=== PATIENT | female | born 1945 | race Caucasian/White ===

== ENCOUNTER 2018-05-19 13:22 | Day surgery (SDC) | payer MEDICARE, OTHER, SELFPAY ==
--- NOTE | 2018-05-19 | PATH_ITS ---
[facility] Accession Number: [id number] . 01 Material submitted: . PART A: CECAL POLYP PART B: PROXIMAL TRANSVERSE COLON PART C: POLYP AT 15CM . 02 Diagnosis: A. Cecal Polyp: Tubular adenoma. . B. Proximal Transverse Colon: Tubular adenoma. . C. Colon Polyp at 15 cm: Inflammatory polyp. MRV/05/21/2018 . 02 Electronically signed: . Diogenes Russo MD, PhD, Pathologist NPI- [id number] . 01 Gross description: . Part A: CECAL POLYP: Received in formalin are multiple fragment(s) of thapa, soft tissue measuring 1.6 x 0.8 x 0.3 cm in aggregate submitted entirely in 1 cassette(s) Part B: PROXIMAL TRANSVERSE COLON: Received in formalin is 1 fragment(s) of thapa, soft tissue measuring 0.7 x 0.5 x 0.3 cm submitted entirely in 1 cassette(s) Part C: POLYP AT 15CM: Received in formalin is 1 fragment(s) of thapa, soft tissue measuring 0.4 x 0.3 x 0.3 cm submitted entirely in 1 cassette(s) /CKI /CKI . 02 Pathologist provided ICD-10: D12.0, D12.3, K51.40 . 02 CPT . 200686, 711563, [id number] Performed at: 01 [facility] [address] [place] [address], [place], [place] [id number] MD Eusebio Perez MD Phone: [phone] Performed at: 02 [facility] [address] [place], [place] [id number] MD Rachel Martinez MD Phone: [phone]
[2018-05-19 14:56] VITALS: BP 137/91; PULSE 72; RESP 15; TEMP 36.2; O2SAT 98; BMI 21.0
[2018-05-19 16:06] VITALS: BMI 21.0
[2018-05-19] MEDS: SODIUM CHLORIDE 0.9% 1,000 ML 200 ML IV (16:12)
[2018-05-19] MEDS: MIDAZOLAM 5 MG/5 ML VIAL IV (16:55)
[2018-05-19] MEDS: fentaNYL 250 MCG/5 ML INJ IV (16:55)
--- NOTE | 2018-05-19 17:20 | PM.HP.1 ---
History of Present Illness Date Patient Seen: 05/19/18 Time Patient Seen: 17:22 Chief complaint: colonoscopy [id number] Narrative: Very pleasant 72-year-old lady here for screening colonoscopy. She reports her last colonoscopy was 11 years ago. She does not recall ever having polyps in the past. Patient History Family & Social History Family History: Reviewed 05/19/18 by Pilar Fatima MD Social History: household members spouse Meds Home Medications Medication Instructions Recorded Confirmed Type No Known Home Medications 05/19/18 05/19/18 History Allergies Allergy/AdvReac Type Severity Reaction Status Date / Time No Known Drug Allergies Allergy Verified 05/19/18 14:55 Review of Systems Review of Systems All systems reviewed & are unremarkable except as noted in HPI and below Exam Vital Signs (past 8 hours): - 05/19/18 14:56 Temperature 97.2 F L Pulse Rate 72 Respiratory Rate 15 Blood Pressure 137/91 H Pulse Oximetry 98 Oxygen Delivery Method Room Air Narrative Exam Narrative: Pleasant thin lady in no obvious distress HEENT: Normocephalic and atraumatic, pupils equal round reactive to light accommodation with anicteric sclera Lungs: Clear bilaterally Heart: Regular rate and rhythm Abdomen: Soft, nontender, active bowel sounds Extremities: Warm well perfused Assessment & Plan Plan: Assessment/Plan Narrative: 72-year-old lady here for screening colonoscopy. We discussed the risks and benefits of the procedure the patient expressed a desire to complete it today.
[2018-05-19 17:22] VITALS: BP 123/78; PULSE 72; RESP 12; TEMP 36.3; O2SAT 97
[2018-05-19 17:27] VITALS: BP 125/77; PULSE 72; RESP 14; O2SAT 98
--- NOTE | 2018-05-19 17:28 | PM.OP.1 ---
Operative Date/Time/Diagnoses Date of procedure: 05/19/18 Time of procedure: 17:28 Pre-op diagnosis: Screening Post-op diagnosis: same Procedure & Clinicians Procedure: Colonoscopy to the cecum with snare and cautery polypectomy x3 Same procedure as scheduled: Yes Indications: Last colonoscopy 11 years ago Surgeon: Pilar Fatima Anesthesia Type: Sedation (Fentanyl and Versed) Operative Notes Findings: 1. Adequate prep 2. 1 cm polyp in the floor of the cecum removed with snare and cautery and retained for pathology 3. 5 mm polyp in the proximal transverse colon removed with snare and cautery and retained for pathology 4. 5 mm polyp at 15 cm from the anal verge removed with snare cautery 5. Tortuous and atonic: 6. Minimal diverticulosis 7. Grade 1-2 internal hemorrhoids Specimen(s): other (Three polyps removed with snare cautery) Procedure in detail: After obtaining informed consent, the patient was brought to the GI suite and placed in the left lateral decubitus position on the examination table. After placement of appropriate monitors, the patient was given incremental doses of Versed and Fentanyl until an appropriate level of sedation was achieved. A time out was held per SCOAP protocol. A digital rectal examination was performed and did not reveal any masses or obstructing lesions. The colonoscope was gently passed into the patient's anus and the entire colon navigated to the level of the cecum with moderate difficulty due to colon atony and tortuosity. External pressure and multiple changes of position were required to complete the procedure. Once in the cecum, the scope was withdrawn being sure to go before and beyond all mucosal folds and prominences and get an excellent examination. The findings are noted above. At the level of the rectal vault, the scope was retroflexed and the internal anal canal was examined. The scope was straightened and air aspirated from the colon. The instrument was removed from the patient's body and the procedure was concluded. The patient was allowed to awaken from sedation without difficulty and taken to the post-anesthesia care unit in good condition. Total sedation time was 29 min Total withdrawal time was 16 min Complications: none Condition: stable Disposition: PACU Plan for aftercare: 1. Discharge to home 2. Plan for next colonoscopy in 2-3 years depending upon the final pathology
[2018-05-19 17:32] VITALS: BP 125/75; PULSE 69; RESP 12; O2SAT 69
--- NOTE | 2018-05-19 17:34 | SUR.PHASEI ---
Pt awake, sitting up. tolerating po liquids without any nausea or vomiting. No complaints of pain. \report given to Rainer puente rn
[2018-05-19 17:40] VITALS: BP 134/79; PULSE 67; RESP 10; TEMP 36.3; O2SAT 100
[2018-05-19 17:55] VITALS: BP 134/79; PULSE 72; RESP 24; TEMP 36.3; O2SAT 98
== END 2018-05-19 17:55 | disposition home or self-care (01) ==
PROVIDERS: PCP Nurse Practitioner Family; Visit Provider Surgery
PROC: 0DJD8ZZ Inspection of Lower Intestinal Tract, Via Natural or Artificial Opening Endoscopic (ICD-10-PCS; CPT 45378; principal; 2018-05-19 16:00)
DX: Z12.11 Encounter for screening for malignant neoplasm of colon (principal); K57.30 Diverticulosis of large intestine without perforation or abscess without bleeding; K64.1 Second degree hemorrhoids; K51.40 Inflammatory polyps of colon without complications; D12.3 Benign neoplasm of transverse colon; D12.0 Benign neoplasm of cecum
CPT/HCPCS: 45385; 88305; 99152; 99153; J2250; J3010

== ENCOUNTER → 2018-10-01 11:42 | Outpatient (CLI) | payer MEDICARE, OTHER, SELFPAY ==
--- NOTE | 2018-10-01 | DI.MG.S_ITS ---
BILATERAL DIGITAL SCREENING MAMMOGRAM 3D/2D WITH CAD: 10/01/2018 CLINICAL: Routine screening. Family history of breast cancer. Comparison is made to exams dated: 08/11/2017 mammogram, 06/28/2016 mammogram, and 06/14/2015 mammogram - [facility]. The tissue of both breasts is heterogeneously dense. This may lower the sensitivity of mammography. Current study was also evaluated with a Computer Aided Detection (CAD) system. No significant masses, calcifications, or other findings are seen in either breast. There has been no significant interval change. IMPRESSION: NEGATIVE There is no mammographic evidence of malignancy. A 1 year screening mammogram is recommended. This exam was interpreted at Station ID: [id number]. NOTE: For mammograms, a report in lay terms will be sent to the patient. Approximately 15% of breast malignancies will not be visualized mammographically. In the management of a palpable breast mass, a negative mammogram must not discourage biopsy of a clinically suspicious lesion. Electronically Signed By: Milton hatfield/geo:10/01/2018 16:59:52 letter sent: Normal Exam ACR BI-RADS Category 1: Negative 3341F
== END ==
PROVIDERS: PCP Nurse Practitioner Family; Visit Provider Nurse Practitioner Family
DX: Z12.31 Encounter for screening mammogram for malignant neoplasm of breast (principal); Z80.3 Family history of malignant neoplasm of breast
CPT/HCPCS: 77063; 77067

== ENCOUNTER → 2018-11-09 14:30 | Outpatient (CLI) | payer MEDICARE, OTHER, SELFPAY | PROVIDERS: PCP Nurse Practitioner Family; Visit Provider Nurse Practitioner Family | DX: M85.852 Other specified disorders of bone density and structure, left thigh (principal); Z78.0 Asymptomatic menopausal state | CPT/HCPCS: 77080 ==

== ENCOUNTER → 2019-10-22 14:32 | Outpatient (CLI) | payer MEDICARE, OTHER, SELFPAY ==
--- NOTE | 2019-10-22 14:35 | DI.MG.S_ITS ---
BILATERAL DIGITAL SCREENING MAMMOGRAM 3D/2D WITH CAD: 10/22/2019 CLINICAL: Routine screening. Family history of breast cancer. Comparison is made to exams dated: 10/01/2018 mammogram, 08/11/2017 mammogram, and 06/28/2016 mammogram - [facility]. The tissue of both breasts is heterogeneously dense. This may lower the sensitivity of mammography. Current study was also evaluated with a Computer Aided Detection (CAD) system. No significant masses, calcifications, or other findings are seen in either breast. There has been no significant interval change. IMPRESSION: NEGATIVE There is no mammographic evidence of malignancy. A 1 year screening mammogram is recommended. This exam was interpreted at Station ID: [id number]. NOTE: For mammograms, a report in lay terms will be sent to the patient. Approximately 15% of breast malignancies will not be visualized mammographically. In the management of a palpable breast mass, a negative mammogram must not discourage biopsy of a clinically suspicious lesion. Electronically Signed By: Day tsang/geo:10/22/2019 16:55:51 letter sent: Normal Exam ACR BI-RADS Category 1: Negative 3341F
== END ==
PROVIDERS: Referring Provider Internal Medicine; Visit Provider Internal Medicine
DX: Z12.31 Encounter for screening mammogram for malignant neoplasm of breast (principal); Z80.3 Family history of malignant neoplasm of breast
CPT/HCPCS: 77063; 77067

== ENCOUNTER → 2020-07-06 15:50 | Outpatient (CLI) | payer MEDICARE, OTHER, SELFPAY ==
[2020-07-06] MEDS: COVID-19 VACC, Ad26(JANSSEN)/PF 0.5 ML IM (16:16)
== END ==
PROVIDERS: Visit Provider Internal Medicine
DX: Z23 Encounter for immunization (principal)
CPT/HCPCS: 0031A; 91303

== ENCOUNTER → 2021-01-02 17:39 | Outpatient (CLI) | payer MEDICARE, OTHER, SELFPAY ==
--- NOTE | 2021-01-02 | DI.MG.S_ITS ---
BILATERAL DIGITAL SCREENING MAMMOGRAM 3D/2D WITH CAD: 01/02/2021 CLINICAL: Routine screening. Family history of breast cancer. Comparison is made to exams dated: 10/22/2019 mammogram, 10/01/2018 mammogram, and 08/11/2017 mammogram - [facility]. The tissue of both breasts is heterogeneously dense. This may lower the sensitivity of mammography. Current study was also evaluated with a Computer Aided Detection (CAD) system. No significant masses, calcifications, or other findings are seen in either breast. There has been no significant interval change. IMPRESSION: NEGATIVE There is no mammographic evidence of malignancy. A 1 year screening mammogram is recommended. This exam was interpreted at Station ID: [id number]. NOTE: For mammograms, a report in lay terms will be sent to the patient. Approximately 15% of breast malignancies will not be visualized mammographically. In the management of a palpable breast mass, a negative mammogram must not discourage biopsy of a clinically suspicious lesion. Electronically Signed By: David Woodward acr/geo:01/03/2021 09:05:45 letter sent: Normal Exam ACR BI-RADS Category 1: Negative 3341F
== END ==
PROVIDERS: PCP Internal Medicine; Referring Provider Internal Medicine; Visit Provider Internal Medicine
DX: Z12.31 Encounter for screening mammogram for malignant neoplasm of breast (principal); Z80.3 Family history of malignant neoplasm of breast
CPT/HCPCS: 77063; 77067

== ENCOUNTER → 2022-02-15 15:47 | Outpatient (CLI) | payer MEDICARE, OTHER, SELFPAY ==
--- NOTE | 2022-02-15 15:50 | DI.MG.S_ITS ---
BILATERAL DIGITAL SCREENING MAMMOGRAM 3D/2D WITH CAD: 02/15/2022 CLINICAL: Routine screening. Family history of breast cancer. Comparison is made to exams dated: 01/02/2021 mammogram, 10/22/2019 mammogram, 10/01/2018 mammogram, and 08/11/2017 mammogram - [facility]. Both breasts are heterogeneously dense, which may obscure small masses (category c / 51-75% glandular tissue). Current study was also evaluated with a Computer Aided Detection (CAD) system. No significant masses, calcifications, or other findings are seen in either breast. There has been no significant interval change. IMPRESSION: NEGATIVE There is no mammographic evidence of malignancy. A 1 year screening mammogram is recommended. Based on the Tyrer Cuzick model (a risk assessment model) the patient's lifetime risk is 5.4% and her 10 year risk is 5.4%. According to the ACR, ACS, and NCCN guidelines, an annual breast MRI exam along with mammogram is recommended if the patient's lifetime risk is 20% or greater. This exam was interpreted at Station ID: [id number]. NOTE: For mammograms, a report in lay terms will be sent to the patient. Approximately 15% of breast malignancies will not be visualized mammographically. In the management of a palpable breast mass, a negative mammogram must not discourage biopsy of a clinically suspicious lesion. Electronically Signed By: Shashi weller/geo:02/15/2022 17:19:46 letter sent: Normal Exam ACR BI-RADS Category 1: Negative 3341F
== END ==
PROVIDERS: PCP Internal Medicine; Referring Provider Internal Medicine; Visit Provider Internal Medicine
DX: Z12.31 Encounter for screening mammogram for malignant neoplasm of breast (principal); Z80.3 Family history of malignant neoplasm of breast
CPT/HCPCS: 77063; 77067

== ENCOUNTER → 2023-02-17 11:20 | Outpatient (CLI) | payer MEDICARE, OTHER, SELFPAY ==
--- NOTE | 2023-02-17 | DI.MG.S_ITS ---
BILATERAL DIGITAL SCREENING MAMMOGRAM 3D/2D WITH CAD: 02/17/2023 CLINICAL: Routine screening. Family history of breast cancer. Comparison is made to exams dated: 02/15/2022 mammogram, 01/02/2021 mammogram, and 10/22/2019 mammogram - [facility]. Both breasts are heterogeneously dense, which may obscure small masses (category c / 51-75% glandular tissue). Current study was also evaluated with a Computer Aided Detection (CAD) system. No significant masses, calcifications, or other findings are seen in either breast. There has been no significant interval change. IMPRESSION: NEGATIVE There is no mammographic evidence of malignancy. A 1 year screening mammogram is recommended. Based on the Tyrer Cuzick model (a risk assessment model) the patient's lifetime risk is 5.0% and her 10 year risk is 0.0%. According to the ACR, ACS, and NCCN guidelines, an annual breast MRI exam along with mammogram is recommended if the patient's lifetime risk is 20% or greater. This exam was interpreted at Station ID: [id number]. NOTE: For mammograms, a report in lay terms will be sent to the patient. Approximately 15% of breast malignancies will not be visualized mammographically. In the management of a palpable breast mass, a negative mammogram must not discourage biopsy of a clinically suspicious lesion. Electronically Signed By: Yuri carvajal/geo:02/18/2023 16:11:22 letter sent: Normal Exam ACR BI-RADS Category 1: Negative 3341F
== END ==
PROVIDERS: PCP Internal Medicine; Referring Provider Internal Medicine; Visit Provider Internal Medicine
DX: Z12.31 Encounter for screening mammogram for malignant neoplasm of breast (principal); Z80.3 Family history of malignant neoplasm of breast
CPT/HCPCS: 77063; 77067

== ENCOUNTER → 2023-07-21 11:12 | Outpatient (CLI) | payer MEDICARE, OTHER, SELFPAY ==
--- NOTE | 2023-07-21 11:14 | DI.RAD.S_ITS ---
Bone Density Report Name: KATARZYNA BLACK Age: 78 Sex: Female Ethnicity: White Date of : 1945 Indication: osteopenia; Referring Provider: RADHA GABRIEL Study: Bone densitometry was performed. Exam Date: July 21, 2023 Accession number: [id number] Bone Density: Region BMD T-score Z-score Classification AP Spine(L1-L4) 0.953 -0.9 1.7 Normal Femoral Neck (Left) 0.640 -1.9 0.3 Osteopenia Total Hip (Left) 0.723 -1.8 0.1 Osteopenia Femoral Neck (Right) 0.635 -1.9 0.3 Osteopenia Total Hip (Right) 0.746 -1.6 0.3 Osteopenia Total Hip Mean 0.735 -1.7 0.2 Osteopenia World Health Organization criteria for BMD impression classify patients as: Normal (T-score at or above -1.0), Osteopenia (T-score between -1.0 and -2.5), or Osteoporosis (T-score at or below -2.5). 10-year Fracture Risk(1): Major Osteoporotic Fracture 13% Hip Fracture 3.5% Reported Risk Factors: [place] (), Neck BMD=0.635, BMI=21.8 (1) FRAX(R) Version 3.08. Fracture probability calculated for an untreated patient. Fracture probability may be lower if the patient has received treatment. Previous Exams: -- Region Exam Age BMD T-score BMD Change BMD Change Date g/cm2 vs Baseline vs Previous -- AP Spine (L1-L4) 07/21/2023 78 0.953 -0.9 -0.073 (-7.1%)# -0.072 (-7.0%)# 11/09/2018 73 1.025 -0.2 -0.001 (-0.1%) -0.001 (-0.1%) 05/08/2011 65 1.026 -0.2 Total Hip(Left) 07/21/2023 78 0.723 -1.8 -0.097 (-11.8%)# -0.049 (-6.3%)# 11/09/2018 73 0.772 -1.4 -0.048 (-5.9%)* -0.048 (-5.9%)* 05/08/2011 65 0.820 -1.0 Total Hip(Right) 07/21/2023 78 0.746 -1.6 -0.157 (-17.4%)# -0.072 (-8.8%)# 11/09/2018 73 0.818 -1.0 -0.085 (-9.4%)* -0.085 (-9.4%)* 05/08/2011 65 0.903 -0.3 -- *Denotes significance at 95% confidence level, LSC for AP Spine = 0.022 g/cm2, LSC for Total Hip = 0.027 g/cm2 # Denotes dissimilar scan types or analysis methods Impression: The patient has low bone mass, based on the Left Femoral Neck T-score. The patient has an estimated ten-year risk of hip fracture of 3.5% and an estimated ten-year risk of major fracture of 13%, based on the WHO FRAX algorithm. No significant bone loss was observed. Discussion: BONE DENSITY IS LOW AT ONE OR MORE SKELETAL SITES. THE PATIENT'S BMD AND CLINICAL RISK FACTORS CONTRIBUTE TO THIS PATIENT'S INCREASED RISK OF FRACTURE. This patient's lowest T-score is low at one or more skeletal sites. It meets the World Health Organization's (WHO) criteria for low bone mass (T-score between -1.0 and -2.5). The patient's 10-year risk of hip fracture as calculated by FRAX exceeds the threshold where pharmacological therapy is recommended by the National Osteoporosis Foundation (NOF). However, all treatment decisions require clinical judgment and consideration of individual patient factors, including patient preferences, comorbidities, previous drug use, risk factors not captured in the FRAX model (e.g., frailty, falls, vitamin D deficiency, increased bone turnover, interval significant decline in bone density) and possible under or overestimation of fracture risk by FRAX. The patient should follow a healthful lifestyle (good nutrition with adequate calcium and vitamin D, and appropriate weight-bearing exercise). Follow-Up: Consider a repeat BMD and Vertebral Fracture Assessment (VFA) exam in 2 years or sooner if medically necessary, to reassess this patient's status. Reported by: SARINA CRYSTAL M.D. on 07/21/2023 11:33:00 AM.
== END ==
PROVIDERS: PCP Internal Medicine; Referring Provider Internal Medicine; Visit Provider Internal Medicine
DX: Z78.0 Asymptomatic menopausal state (principal); M85.852 Other specified disorders of bone density and structure, left thigh
CPT/HCPCS: 77080

== ENCOUNTER → 2024-01-31 09:24 | Outpatient (CLI) | payer MEDICARE, OTHER, SELFPAY ==
[2024-01-31 10:29] LABS: Influenza A - CEPHEID Flu A NEGATIVE (NEGATIVE); Influenza B - CEPHEID Flu B NEGATIVE (NEGATIVE); Respiratory Syncytial Virus Negative (Negative)
[2024-01-31 10:45] LABS: COVID-19 CEPHEID 4-PLEX PCR Negative (Negative)
== END ==
PROVIDERS: PCP Internal Medicine; Visit Provider Physician Assistant Surgical
DX: R05.1 Acute cough (principal)
CPT/HCPCS: 0241U

== ENCOUNTER → 2024-02-21 11:21 | Outpatient (CLI) | payer MEDICARE, OTHER, SELFPAY ==
--- NOTE | 2024-02-21 11:25 | DI.MG.S_ITS ---
BILATERAL DIGITAL SCREENING MAMMOGRAM 3D/2D WITH CAD: 02/21/2024 CLINICAL: Routine screening. Family history of breast cancer. Comparison is made to exams dated: 02/17/2023 mammogram, 02/15/2022 mammogram, and 01/02/2021 mammogram - [facility]. There are scattered areas of fibroglandular density (category b / 25%-50% glandular tissue). Current study was also evaluated with a Computer Aided Detection (CAD) system. No significant masses, calcifications, or other findings are seen in either breast. There has been no significant interval change. IMPRESSION: NEGATIVE There is no mammographic evidence of malignancy. A 1 year screening mammogram is recommended. Based on the Tyrer Cuzick model (a risk assessment model) the patient's lifetime risk is 3.0% and her 10 year risk is 0.0%. According to the ACR, ACS, and NCCN guidelines, an annual breast MRI exam along with mammogram is recommended if the patient's lifetime risk is 20% or greater. This exam was interpreted at Station ID: [id number]. NOTE: For mammograms, a report in lay terms will be sent to the patient. Approximately 15% of breast malignancies will not be visualized mammographically. In the management of a palpable breast mass, a negative mammogram must not discourage biopsy of a clinically suspicious lesion. Electronically Signed By: Day tsang/geo:02/24/2024 09:59:41 letter sent: Normal Exam ACR BI-RADS Category 1: Negative
== END ==
LOC: MAMMO 11:23
PROVIDERS: PCP Internal Medicine; Referring Provider Internal Medicine; Visit Provider Internal Medicine
DX: Z12.31 Encounter for screening mammogram for malignant neoplasm of breast (principal); Z80.3 Family history of malignant neoplasm of breast
CPT/HCPCS: 77063; 77067

== ENCOUNTER → 2024-11-10 13:29 | Outpatient (CLI) | payer MEDICARE, OTHER, SELFPAY ==
--- NOTE | 2024-11-10 13:31 | DI.ECHO.S_ITS ---
[facility] : : [address] : : [place] : : [id number] : : Phone: [phone] Echocardiogram Report + + :Name: KATARZYNA BLACK Study Date: 11/10/2024 Height: 66 in : :[facility] ReadingLocation: Weight: 130 lb : : Gender: Female BSA: 1.7 m2 : :: 1945 Age: 79 yrs BP: 125/85 mmHg: :Reason For Study: ATHEROSCLEROSIS : :Ordering Physician: SHANEL MAYFIELD Performed By: Angela Chiang : :Referring: SHANEL MAYFIELD : + + Interpretation Summary 1. Normal LV contractility with EF > 60%. No WMA. No LVH. Normal diastolic function. 2. Normal RV contractility. 3. Normal chamber sizes. 4. Trace to mild MR. 5. No intracardiac shunts. 6. No obvious intracardiac masses/thrombi. 7. No hemodynamically significant pericardial effusion. 8. Low right sided filling pressures. Conclusion: Normal biventricular function with trace to mild MR. Procedure: A two-dimensional transthoracic echocardiogram with color flow and Doppler was performed. The study quality was technically adequate. There is no prior echocardiogram noted for this patient. The patient was in sinus rhythm with heart rates between 61-74 bpm during the exam. Left Ventricle: The left ventricle is normal in size and wall thickness. The ejection fraction is estimated to be 60-65%. Normal diastolic function. Right Ventricle: The right ventricle is normal in size and function. Atria: The left atrial size is normal. Right atrial size is normal. There is no Doppler evidence for an interatrial shunt. Mitral Valve: The mitral valve leaflets appear to open well. There is mild mitral regurgitation. Aortic Valve: The aortic valve is trileaflet. The aortic valve opens well. There is no aortic valve stenosis. No aortic regurgitation is present. Tricuspid Valve: The tricuspid valve leaflets are thin and pliable. There is trace tricuspid regurgitation. The right ventricular systolic pressure is estimated to be at least 24 mmHg based on an estimated right atrial pressure of 3 mm Hg. Pulmonic Valve: The pulmonic valve is not well seen, but is grossly normal. There is trace pulmonic regurgitation. Great Vessels: The aortic root is normal size. The dimensions of the ascending aorta are normal. The IVC is of normal diameter and collapses greater than 50% with a sniff. This suggests a low right atrial pressure of 3 mm Hg. Pericardium/ Pleura There is no pericardial effusion. There is no pleural effusion. MMode/2D Measurements & Calculations LVIDd: 4.4 cm LVOT diam: 2.0 cm LVIDs: 3.2 cm Ao root diam: 3.4 cm FS: 25.8 % asc Aorta Diam: 3.9 cm EPSS: 0.44 cm Ao Arch Diam (Prox Trans): 2.7 cm IVSd: 0.80 cm LVPWd: 0.92 cm LV real. diameter/BSA (cm/m^2): 2.6 LV sys. diameter/BSA (cm/m^2): 1.9 LA A2 area: 18.2 cm2 RA long axis: 4.2 cm LA A4 area: 11.6 cm2 RA area: 11.3 cm2 LA length (vol): 4.3 cm RA vol: 25.9 ml LA vol: 42.1 ml RA : 15.5 ml/m2 LA vol index: 25.3 ml/m2 IVC diam: 2.0 cm RVD1 (basal): 3.6 cm RVD2 (mid): 3.0 cm TAPSE: 2.0 cm Doppler Measurements & Calculations Ao V2 max: 106.9 cm/sec LVOT Max Micah: 97.9 cm/sec Ao V2 mean: 75.6 cm/sec LV V1 max P.8 mmHg Ao max P.6 mmHg LV V1 VTI: 20.3 cm Ao mean P.5 mmHg FABIÁN(I,D): 2.8 cm2 Ao V2 VTI: 23.9 cm FABIÁN(V,D): 3.0 cm2 sev ratio: 0.85 FABIÁN indexed to BSA (cm^2/m^2): 1.7 MV E max micah: 72.3 cm/sec TR max micah: 229.0 cm/sec MV A max micah: 73.7 cm/sec TR max P.0 mmHg MV E/A: 0.98 PA V2 max: 72.5 cm/sec Med Peak E' Micah: 5.7 cm/sec PA V2 mean: 48.9 cm/sec E/E' med: 12.6 PA mean P.1 mmHg Lat Peak E' Micah: 7.0 cm/sec PA pr(Accel): 12.6 mmHg E/E' lat: 10.3 E/e' average: 11.5 MV dec time: 0.18 sec SV(LVOT): 66.9 ml Reading Physician:WING
== END ==
LOC: ECHO 13:30
PROVIDERS: PCP Internal Medicine; Referring Provider Internal Medicine; Visit Provider Internal Medicine
DX: I34.0 Nonrheumatic mitral (valve) insufficiency (principal); I25.10 Atherosclerotic heart disease of native coronary artery without angina pectoris
CPT/HCPCS: 93306

== ENCOUNTER → 2025-04-11 15:35 | Outpatient (CLI) | payer MEDICARE, OTHER, SELFPAY ==
--- NOTE | 2025-04-11 15:36 | DI.MG.S_ITS ---
MM screening mammo BI: 04/11/2025. BI-RADS: 1 CLINICAL: 79-year old female for bilateral screening mammogram. Tyrer-Cuzick lifetime risk of 1.4%. No personal or first-degree family history of breast cancer. Current reported family history of breast cancer: maternal grandmother. PRIOR EXAMS 02/21/2024, 02/17/2023, 02/15/2022, 01/02/2021, MAMMOGRAPHY TECHNIQUE: 2D and 3D (tomosynthesis) digital mammographic views obtained, with additional images as needed for full coverage. Current study was also evaluated with a Computer Aided Detection (CAD) system. DENSITY B. There are scattered areas of fibroglandular density. MAMMOGRAPHY FINDINGS Bilateral: No suspicious mass, asymmetry, microcalcification, or other abnormality seen. IMPRESSION: * No evidence of malignancy. RECOMMENDATIONS Bilateral * Annual screening mammography. OVERALL ASSESSMENT CATEGORY BI-RADS-1: Negative. The [employer] recommends annual screening mammography beginning at age 40 for women with average risk of breast cancer. ELECTRONICALLY SIGNED: Shashi Swenson M.D. on 04/12/2025 at 10:16:19 AM PT Interpreting Station ID: [id number]
== END ==
LOC: MAMMO 15:36
PROVIDERS: PCP Registered Nurse; Referring Provider Registered Nurse; Visit Provider Registered Nurse
DX: Z12.31 Encounter for screening mammogram for malignant neoplasm of breast (principal); Z80.3 Family history of malignant neoplasm of breast
CPT/HCPCS: 77063; 77067